=== PATIENT | male | born 1975 | race African-American/Black ===

== ENCOUNTER 2019-06-07 18:56 | Emergency (ER) | payer SELFPAY ==
--- NOTE | ~2019-06-07 | XR_ITS ---
EXAMINATION: XR chest 2V DATE: 06/07/2019 19:52 INDICATION: Cough and shortness of breath TECHNIQUE: PA and lateral views of the chest are obtained. COMPARISON: None available FINDINGS: The lungs are free of acute opacities. There is no pleural effusion or pneumothorax. The ca rdiomediastinal silhouette is normal. The visualized bones and soft tissues are unremarkable. IMPRESSION: 1. No acute cardiopulmonary abnormality. Reviewed, dictated and finalized at location A.
[2019-06-07 19:07] VITALS: BP 131/93; PULSE 75; PULSE 76; RESP 16; TEMP 36.8; O2SAT 100
--- NOTE | 2019-06-07 19:21 | ED.ASTHMA ---
HPI - Asthma General Chief Complaint: Asthma Stated Complaint: chest pain, short of breath, asthma Time Seen by Provider: 06/07/19 19:12 Source: patient and RN notes reviewed Mode of arrival: ambulatory Limitations: no limitations History of Present Illness HPI Narrative: Pt is a 43 y/o -[place] male with a Hx of asthma, who presents to the ED with c/o SOB starting several days ago. He notes that he normally uses an albuterol inhaler roughly every 6 hours at home, but states that his inhaler hasn't improved his breathing for the past 3 days. Pt reports lt parasternal chest pain and wheezing accompanying his SOB, but denies any cough or LE edema. He states that his CP is aggravated with breathing. Pt notes that he has a Hx of seasonal allergies, and states that he has been taking Vivien for a recent flare-up of his allergies. He notes that he recently travelled from [place] by car. Pt denies having any Hx of DVT, PE, or CAD. MD complaint: shortness of breath Onset (ago): day(s) (several) Context: allergen exposure Associated symptoms: chest pain (lt parasternal chest pain) and other (wheezing) Treatments Prior to Arrival: inhaled bronchodilator (albuterol) Related Data Allergies Allergy/AdvReac Type Severity Reaction Status Date / Time No Known Allergies Allergy Verified 06/07/19 19:11 Review of Systems Review of Systems: All systems reviewed & are unremarkable except as noted in HPI and below Cardiovascular: Cardiovascular: Reports chest pain (lt parasternal chest pain) and Denies leg edema Respiratory: Respiratory: Denies cough, Reports dyspnea and Reports wheezing PMFSH Past Medical History Medical History Asthma Surgical History Surgical History No significant past surgical history Social History Social History Smoking status: Never smoker Gender identity (if verbalized by the patient): Male Exam Narrative: Exam Narrative: GENERAL: Well-appearing, well-nourished, and in no acute distress. HEAD: Normocephalic, atraumatic EYES: PERRLA and EOMI, conjunctiva clear without discharge THROAT:Mucous membranes moist, Oropharynx normal without erythema, exudate, peritonsillar swelling or fluctuance NECK: Supple, without lymphadenopathy or mass RESPIRATORY: No respiratory distress, Airway patent, Respirations non-labored, Clear to auscultation without rales, rhonchi or wheeze HEART: Regular rate and rhythm. No murmur heard. Normal peripheral pulses. ABDOMEN: Soft, nontender, nondistended, normal active bowel sounds. No masses. No rebound or guarding, No organomegaly. EXTREMITIES: No edema, normal strength with full range of motion. SKIN: Warm, dry, normal color without rash NEURO: Alert and oriented x3. CN 2-12 grossly intact. No focal deficits. PSYCH: Normal mood and affect. Course Course Emergency Course: Patient presented with intermittent chest pain that has resolved. He has negative d dimer. Vital Signs Vital signs: Vital Signs Temperature 98.3 F 06/07/19 19:07 Pulse Rate 75 06/07/19 19:07 Respiratory Rate 16 06/07/19 19:07 Blood Pressure 131/93 H 06/07/19 19:07 Pulse Oximetry 100 06/07/19 19:07 Temperature 98.3 F 06/07/19 19:07 Pulse Rate 72 06/07/19 20:39 Respiratory Rate 16 06/07/19 20:39 Blood Pressure 128/75 06/07/19 20:39 Pulse Oximetry 100 06/07/19 20:39 MDM - Asthma Lab Data Attestation: I reviewed the patient's lab results. Result diagrams: 06/07/19 19:35 06/07/19 19:35 Labs: Lab Results 06/07/19 06/07/19 06/07/19 Range/Units 19:33 19:35 19:35 WBC 6.2 (4.5-10.0) K/mm3 RBC 4.79 (4.6-6.20) M/mm3 Hgb 14.8 (14.0-18.0) g/dL Hct 43.8 (42.0-52.0) % MCV 91.4 (80-100) fl MCH 30.9 (26-34) pg MCHC 33.8 (32-36) g/dl RDW 12.7 (11.5-
--- NOTE | 2019-06-07 19:22 | ECG_ITS ---
Measurements Intervals [place] Rate: 77 P: 53 HI: 143 QRS: 8 QRSD: 97 T: 24 QT: 356 QTc: 405 Interpretive Statements SINUS RHYTHM RSR' IN V1 OR V2, CONSIDER RIGHT VENTRICULAR HYPERTROPHY OR RIGHT VCD VOLTAGE CRITERIA FOR LVH MINIMAL Q WAVES- LATERAL LEADS BORDERLINE ECG Electronically Signed On 06-08-2019 8:36:49 CDT by Nikolai Anthony D.O.
[2019-06-07 19:37] LABS: Alveolar/Arterial O2 Gradient 17.3 mmHg; Base Excess ABG -0.5 mEq/l (+/-2.0); Carboxyhemoglobin 0.3 % THb (0-2.0); Device ROOM AIR; Fractional Inspired Oxygen 21 %; HCO3 ABG 24.1 mEq/l (22.0-26.0); Methemoglobin ABG 0.3 %THb (0-1.5); Modified Allen's Test Pass; Oxygen Content ABG 20.8 %vol (16.0-22.0); Oxygen Saturation ABG 96.4 % (95.0-100.0); Oxyhemoglobin 95.3 % THb (90.0-100.0); PCO2 ABG 39.8 mmHg (35.0-45.0); PO2 ABG 84.8 mmHg (80.0-100.0); PO2 FiO2 Ratio Arterial Blood 4.04 %; Reduced Hemoglobin 4.1 %THb (0-5.0); Site Drawn RIGHT RADIAL; Total Hemoglobin 15.5 g/dL (12.0-18.0)
[2019-06-07 19:46] LABS: Basophils Absolute Auto 0.1 K/mm3 (0.0-0.1); Basophils Percent Auto 0.8 % (0.2-1.2); Eosinophils Absolute Auto 0.2 K/mm3 (0-0.3); Eosinophils Percent Auto 3.6 % (0-4.4); Hematocrit 43.8 % (42.0-52.0); Hemoglobin 14.8 g/dL (14.0-18.0); Immature Granulocyte Absolute 0.01 K/mm3 (0.00-0.031); Immature Granulocyte Percent A 0.2 % (0-0.5); Lymphocytes Absolute Auto 2.83 K/mm3 (0.9-3.2); Lymphocytes Percent Auto 45.9 % (18.3-44.2); Mean Corpuscular HGB Conc 33.8 g/dl (32-36); Mean Corpuscular Hemoglobin 30.9 pg (26-34); Mean Corpuscular Volume 91.4 fl (80-100); Mean Platelet Volume 11.5 fl (7.4-10.4); Monocytes Absolute Auto 0.5 K/mm3 (0.1-0.6); Monocytes Percent Auto 7.5 % (2.6-8.5); Neutrophils Absolute Auto 2.6 K/mm3 (1.3-6.7); Platelet Count Result 225 k/mm3 (150-375); Red Blood Count 4.79 M/mm3 (4.6-6.20); Red Cell Distribution Width 12.7 % (11.5-14.5); White Blood Count 6.2 K/mm3 (4.5-10.0)
[2019-06-07 19:57] LABS: Alanine Aminotransferase 30 U/L (4-50); Albumin Level 3.9 g/dL (3.5-5.1); Alkaline Phosphatase 53 U/L (38-126); Aspartate Amino Transferase 33 U/L (17-59); Bilirubin,Total 0.4 mg/dL (0.2-1.3); Blood Urea Nitrogen 11 mg/dL (9-20); Calcium 8.7 mg/dL (8.4-10.2); Carbon Dioxide 33 mmol/L (22-30); Chloride 101 mmol/L (98-107); Estimated CRCL calculation 124 ml/min; Estimated Glomerular Filt Rate > 60; Glucose 96 mg/dL (75-110); Sodium 136 mmol/L (137-145)
[2019-06-07 19:59] LABS: INR 0.9; Prothrombin Time 12.3 Seconds (11.1-14.7)
[2019-06-07 20:00] LABS: Partial Thromboplastin Time 29.7 SECONDS (22.3-36.8)
[2019-06-07 20:09] LABS: Troponin I < 0.012 ng/mL (0.000-0.034)
[2019-06-07 20:12] LABS: D Dimer 0.27 ug/mL (<0.48)
[2019-06-07 20:39] VITALS: BP 128/75; PULSE 72; RESP 16; O2SAT 100
== END 2019-06-07 21:38 | disposition home or self-care (01) ==
PROVIDERS: Emergency Provider General Practice
DX: R07.89 Other chest pain (principal); R94.31 Abnormal electrocardiogram [ECG] [EKG]
CPT/HCPCS: 36415; 36600; 71046; 80053; 82375; 82805; 83050; 84484; 85025; 85380; 85610; 85730; 87804; 93005; 99284